=== PATIENT | male | born 1965 | race Caucasian/White ===

== ENCOUNTER 2024-06-10 14:46 | Emergency (ER) | payer SELFPAY ==
[2024-06-10 14:58] VITALS: BP 120/68
[2024-06-10 15:18] LABS: % Basophils 0.6 % (0-2); % Immature Granulocytes 0.6 % (0-0.5); % Lymphocytes 20.1 % (20.5-51.1); % Monocytes 7.9 % (1.7-9.3); % Neutrophils 62.8 % (42.2-75.2); Absolute Basophils 0.1 10^3/uL (0-0.2); Absolute Eosinophils 1.1 10^3/uL (0-0.7); Absolute Immature Granulocytes 0.1 10^3/uL (0-0.05); Absolute Lymphocytes 2.8 10^3/uL (1.2-3.4); Absolute Monocytes 1.1 10^3/uL (0.1-0.6); Absolute Neutrophils 8.8 10^3/uL (1.4-6.5); Hematocrit 43.7 % (39.0-52.0); Hemoglobin 14.6 g/dL (13.0-18.0); Mean Corp Hgb Conc. 33.4 g/dL (33.0-37.0); Mean Corpuscular Hgb 30.9 pg (27.0-31.0); Mean Corpuscular Volume 92.6 fL (80.0-94.0); Mean Platelet Volume 9.1 fL (7.4-10.4); Nucleated Red Blood Cells % 0 % (-); Platelet Count 412 10^3/uL (130-400); Red Blood Cell Count 4.72 10^6/uL (4.70-6.10)
[2024-06-10 15:32] LABS: ALT (SGPT) 19 U/L (0-50); AST (SGOT) 20 U/L (17-59); Albumin 4.5 g/dl (3.5-5.0); Alkaline Phosphatase 65 U/L (38-126); Blood Urea Nitrogen 15 mg/dl (9-20); Calcium 9.5 mg/dl (8.4-10.2); Carbon Dioxide 28 mmol/L (22-30); Chloride 103 mmol/L (98-107); Glucose 89 mg/dl (70-99); Potassium 4.2 mmol/L (3.5-5.1); Sodium 141 mmol/L (135-145); Total Bilirubin 0.5 mg/dl (0.2-1.3); eGFR > 60.00
--- NOTE | 2024-06-10 18:10 | ED.GENMED ---
History of Present Illness
<SEAN Ramos - Last Filed: 06/10/24 18:46>
General
Chief Complaint: Skin Problem
Source: patient
Exam Limitations: none
Time Seen by Provider: 06/10/24 17:44
Nursing documentation reviewed up to this point in time: agreed with
History of Present Illness
History of Present Illness:
patient is a 50-year-old male who presents to the ER complaining of a rash. Patient reports he started with a bump to his left inner thigh 10 days ago however rash has since spread. He now c/o of a generalized itchy rash. He denies any difficulty
breathing no new soaps lotions detergents.
He denies any difficulty breathing.
Review of Systems
<SEAN Ramos - Last Filed: 06/10/24 18:46>
Review of Systems
Allergies reviewed?: Yes
All Other Systems: ROS reviewed and negative except as documented in HPI and ROS
Constitutional: Reports no symptoms; Denies fever, fatigue or chills
Respiratory: Reports no symptoms; Denies trouble breathing
Cardiac: Reports no symptoms
Musculoskeletal: Reports no symptoms
Skin: Reports itching and rash
Neurological: Reports no symptoms
Psychiatric: Reports no symptoms
Phy Exam
<SEAN Ramos - Last Filed: 06/10/24 18:46>
General Physical Exam
General Presentation: no apparent distress
General age: appears stated age
General Skin: warm and dry
General Mental: alert
General Hydration: appears well hydrated
ENT Exam
ENT Exam: EOMI, neck supple and other (No lip or tongue swelling)
Cardiovascular Exam
Cardiovascular Exam: regular rate/rhythm, no murmur and normal peripheral pulses
Pulmonary Exam
Pulmonary Exam: lungs clear and no respiratory distress
Neurological Exam
Neurological Exam: alert and oriented x3
Musculoskeletal Exam
Musculoskeletal Exam: full ROM
Skin Exam
Skin Exam: normal color, warm/dry and other (+ generalized rash crusted areas of rash in a linear pattern )
Psychiatric Exam
Psychiatric Exam: normal mood/affect
Course
<SEAN Ramos - Last Filed: 06/10/24 18:46>
Orders/Labs/Results
Orders:
Orders
06/10/24 15:06
CBC/With Diff [Complete Blood Count/With Diff] Urgent
Comprehensive Metabolic Panel Urgent
06/10/24 18:34
Dexamethasone Pf [Decadron] 10 mg PO NOW STA
Abnormal Lab Results
06/10/24
15:06
WBC 14.0 H 10^3/uL
(4.8-10.8)
Plt Count 412 H 10^3/uL
(130-400)
Abs Immat Gran (auto) 0.1 H 10^3/uL
(0-0.05)
Absolute Neuts (auto) 8.8 H 10^3/uL
(1.4-6.5)
Absolute Monos (auto) 1.1 H 10^3/uL
(0.1-0.6)
Absolute Eos (auto) 1.1 H 10^3/uL
(0-0.7)
Immature Gran % 0.6 H %
(0-0.5)
Lymphocytes % 20.1 L %
(20.5-51.1)
Eosinophils % 8.0 H %
(0-6)
06/10/24 15:06
06/10/24 15:06
Vital Signs
Initial and Last Documented VS:
Initial Vital Signs
Temp Pulse Resp BP Pulse Ox
98 F 104 16 120/68 99
06/10/24 14:58 06/10/24 14:58 06/10/24 14:58 06/10/24 14:58 06/10/24 14:58
Last Documented Vital Signs
Temp Pulse Resp BP Pulse Ox
98 F 104 16 120/68 99
06/10/24 14:58 06/10/24 14:58 06/10/24 14:58 06/10/24 14:58 06/10/24 14:58
Music Director consulted with Physician
Music Director consulted with physician?: Yes
Name of Physician Consulted: james
<Mario Alberto Reveles, DO - Last Filed: 06/10/24 18:34>
Orders/Labs/Results
Orders:
Orders
06/10/24 15:06
CBC/With Diff [Complete Blood Count/With Diff] Urgent
Comprehensive Metabolic Panel Urgent
06/10/24 18:34
Dexamethasone Pf [Decadron] 10 mg PO NOW STA
Abnormal Lab Results
06/10/24
15:06
WBC 14.0 H 10^3/uL
(4.8-10.8)
Plt Count 412 H 10^3/uL
(130-400)
Abs Immat Gran (auto) 0.1 H 10^3/uL
(0-0.05)
Absolute Neuts (auto) 8.8 H 10^3/uL
(1.4-6.5)
Absolute Monos (auto) 1.1 H 10^3/uL
(0.1-0.6)
Absolute Eos (auto) 1.1 H 10^3/uL
(0-0.7)
Immature Gran % 0.6 H %
(0-0.5)
Lymphocytes % 20.1 L %
(20.5-51.1)
Eosinophils % 8.0 H %
(0-6)
06/10/24 15:06
06/10/24 15:06
Vital Signs
Initial and Last Documented VS:
Initial Vital Signs
Temp Pulse Resp BP Pulse Ox
98 F 104 16 120/68 99
06/10/24 14:58 06/10/24 14:58 06/10/24 14:58 06/10/24 14:58 06/10/24 14:58
Last Documented Vital Signs
Temp Pulse Resp BP Pulse Ox
98 F 104 16 120/68 99
06/10/24 14:58 06/10/24 14:58 06/10/24 14:58 06/10/24 14:58 06/10/24 14:58
<SEAN Ramos - Last Filed: 06/10/24 18:46>
MDM/Problems Addressed
MDM/Problems Addressed:
Patient describes a very itchy rash that started 10 days ago on his left leg and now spreading. Rash consistent with likely a contact dermatitis. Will DC with long course of steroids with oral Decadron here in the ER. Patient however is in no
acute distress no diff breathing no lip no tongue swelling
<SEAN Ramos - Last Filed: 06/10/24 18:46>
*Pulse Oximetry
Patient hypoxic: no
*Critical Care Note
Total Time (30-74mins, 75-104mins- exclusive of procedures): Not Applicable
ED Attending Note
<SEAN Ramos - Last Filed: 06/10/24 18:46>
-
Portions of this chart may have been created with voice recognition software.� Occasional wrong word or��sound alike� substitutions may have occurred due to the inherent limitations of voice recognition software.
<Mario Alberto Reveles DO - Last Filed: 06/10/24 18:34>
ED Attending Note
Patient seen and examined by attending physician: Yes
I performed the substantive portion of visit, reviewed & personally made and approve the management plan that is documented in note by myself or CYN.: Yes
ED Attending Note:
I have seen and evaluated the patient with a [id number] encounter. I have spoken to the advance practicer provider and involved in the medical history, the physical exam, medical decision making.
Evaluation and management service: agree unless noted differently below.
Results interpretation: agree unless noted differently below.
Focused HPI: 58-year-old male presenting with worsening rash over the past week or so. He is not remember a bug bite. Patient states is very itchy. He denies fevers
Physical exam: Generalized rash dog days. There is yellow crusting around the area
Medical Decision Making: His rash seems to be some sort of contact dermatitis, potentially poison [place]. Will start steroids and will place on Atarax. No red flags such as rash on his palms or mucous membranes or positive [place].
Discharge Plan
Departure
Patient Disposition: Home (Routine Discharge)
Date of Disposition: 06/10/24
Time of Disposition: 18:41
Patient with high blood pressure during this ER visit?: No
Covid-19: Not Applicable
Discharge Problem:
Contact dermatitis
Instructions: Poison [place], Poison [place], Poison [place] ED, Dermatitis ( Contact )
Prescriptions:
New
prednisone 10 mg Tablet
See Rx Instructions .ROUTE .COMPLEX Qty: 30 0RF
Rx Instructions:
Take By Mouth:
40 mg daily x3 days, 30 mg daily x3 days,
20 mg daily x3 days, 10 mg daily x3 days.
Referrals:
[facility] [Provider Group]
[facility] [Outside]
NONE,* [Family Provider] -
Activity Restrictions/Additional Instructions:
As discussed a prescription for steroids was sent to your pharmacy: start tomorrow. You were given 1 dose of oral steroids here in the ER.
Return if any worsening of symptoms.
You may follow-up with [facility]: [phone] or [facility] practice clinic
Return if any worsening of symptoms
Interventions
Interventions:
*Risk Screen - Suicide Last Done: 06/10/24 14:58
*Neglect/Abuse Screening Last Done: 06/10/24 14:58
Discharge Date and Time
Print Language: ITALIAN
[2024-06-10] MEDS: DECADRON 10 MG PO (19:01)
== END 2024-06-10 19:12 | disposition home or self-care (01) ==
LOC: EMR 14:46
PROVIDERS: Emergency Medicine; EMERGENCY PHYSICIAN Student in an Organized Health Care Education/Training Program
DX: L25.9 Unspecified contact dermatitis, unspecified cause (principal)
CPT/HCPCS: 99283; 80053; 85025